=== PATIENT | male | born 1965 | race African-American/Black ===

== ENCOUNTER 2023-02-13 10:40 | Inpatient (IN) | payer OTHER ==
[2023-02-13 11:11] VITALS: BMI 24.5
[2023-02-13] MEDS ORDERED: BENZONATATE 200 MG CAPSULE PO PRN (11:57)
[2023-02-13] MEDS ORDERED: NALOXONE HCL 0.4 MG/ML VIAL IM PRN (11:57)
[2023-02-13] MEDS ORDERED: LOPERAMIDE HCL 2 MG CAPSULE PO PRN (11:57)
[2023-02-13] MEDS ORDERED: MAGNESIUM HYDROX 2400MG/30ML ORAL SUSPENSION 30 ML CUP PO PRN (11:57)
[2023-02-13] MEDS ORDERED: hydrOXYzine PAMOATE 25 MG CAPSULE (FP) PO PRN (11:57)
[2023-02-13] MEDS ORDERED: guaiFENesin 600 MG TABLET.ER (FP) PO PRN (11:57)
[2023-02-13] MEDS ORDERED: POLYETHYLENE GLYCOL (HEALTHYLAX) 3350 17 GM PACKET PO PRN (11:57)
[2023-02-13] MEDS ORDERED: NALOXONE HCL (KLOXXADO) 8 MG SPRAY NS PRN (11:57)
[2023-02-13] MEDS ORDERED: AMMONIUM LACTATE 12% LOTION 225 GM BOTTLE TP PRN (11:57)
[2023-02-13] MEDS ORDERED: ACETAMINOPHEN 325 MG TABLET (FP) PO PRN (11:57)
[2023-02-13] MEDS ORDERED: IBUPROFEN 400 MG TABLET (FP) PO PRN (11:57)
[2023-02-13] MEDS ORDERED: BENZOCAINE/MENTHOL (CHLORASEPTIC ) LOZENGE MM PRN (11:57)
[2023-02-13] MEDS ORDERED: PRENATAL VITAMINS W/ FOLIC ACID TABLET (FP) PO ONE (13:59)
[2023-02-13] MEDS ORDERED: LISINOPRIL 10 MG TABLET ONE (13:59)
[2023-02-13] MEDS: PRENATAL VITAMINS W/ FOLIC ACID TABLET (FP) PO SCH (14:04)
[2023-02-13] MEDS: LISINOPRIL 10 MG TABLET PO SCH (14:05)
[2023-02-13] MEDS: PANTOPRAZOLE 20 MG TABLET PO SCH (14:05)
[2023-02-13 16:14] LABS: HEMATOCRIT 38.9 % (35.4-49); HEMOGLOBIN 12.8 GM/dL (11.7-16.9); MCHC 32.8 g/dl (32.0-35.9); MEAN CELL VOLUME 97.4 fl (80-96); MEAN PLT VOLUME 9.4 fl (7.5-11.1); PLATELET COUNT 267 10^3/uL (134-434); RDW 15.8 % (11.9-15.9); WHITE BLOOD COUNT 6.1 K/mm3 (4.0-10.0)
[2023-02-13 16:16] LABS: POTASSIUM 4.1 mmol/L (3.5-5.1)
[2023-02-13 16:18] LABS: ALBUMIN 3.6 g/dl (3.4-5.0); BLOOD UREA NITROGEN 14.3 mg/dL (7-18); CALCIUM 9.1 mg/dL (8.5-10.1)
[2023-02-13 16:21] LABS: CREATININE 1.2 mg/dL (0.55-1.3)
[2023-02-13 16:23] LABS: BILIRUBIN,TOTAL 0.8 mg/dL (0.2-1); TOT PROT 6.8 g/dl (6.4-8.2)
[2023-02-13] MEDS ORDERED: INSULIN (NOVOLOG) ASPART 100 UNITS/ML 10ML VIAL ONE (18:18)
[2023-02-13] MEDS: INSULIN SLIDING SCALE (NOVOLOG) 1 VIAL SQ SCH (18:20)
[2023-02-13] MEDS: THIAMINE HCL 100 MG TABLET (FP) PO SCH (21:33)
[2023-02-13] MEDS: MELATONIN 5 MG TABLETS PO SCH (21:33)
[2023-02-13] MEDS: ATORVASTATIN CA 20 MG TABLET (FP) PO SCH (21:34)
[2023-02-14] MEDS: metFORMIN HCL 500 MG TABLET (FP) PO SCH (06:58)
[2023-02-14] MEDS: INSULIN SLIDING SCALE (NOVOLOG) 1 VIAL SQ SCH ×2 (06:59→16:50)
[2023-02-14] MEDS: PRENATAL VITAMINS W/ FOLIC ACID TABLET (FP) PO SCH (10:00)
[2023-02-14] MEDS: PANTOPRAZOLE 20 MG TABLET PO SCH (10:00)
[2023-02-14] MEDS: LISINOPRIL 10 MG TABLET PO SCH (10:00)
[2023-02-14] MEDS ORDERED: LISINOPRIL 10 MG TABLET PO SCH (10:00)
[2023-02-14] MEDS ORDERED: INSULIN (LEVEMIR) 100 UNITS/ML UNITS SQ SCH (10:00)
[2023-02-14 11:25] LABS: PH,URINE 5.5 (5.0-8.0); URINE APPEARANCE CLEAR; URINE BILIRUBIN NEGATIVE (NEGATIVE); URINE COLOR YELLOW; URINE GLUCOSE (UA) NEGATIVE (NEGATIVE); URINE KETONE TRACE (NEGATIVE); URINE LEUK ESTERASE NEGATIVE (NEGATIVE); URINE NITRITE NEGATIVE (NEGATIVE); URINE PROTEIN NEGATIVE (NEGATIVE); URINE UROBILINOGEN 0.2 mg/dL (0.2-1.0)
[2023-02-14] MEDS: ATORVASTATIN CA 20 MG TABLET (FP) PO SCH (22:31)
[2023-02-14] MEDS: MELATONIN 5 MG TABLETS PO SCH (22:31)
[2023-02-14] MEDS: THIAMINE HCL 100 MG TABLET (FP) PO SCH (22:32)
[2023-02-15] MEDS: metFORMIN HCL 500 MG TABLET (FP) PO SCH (06:42)
[2023-02-15] MEDS: INSULIN SLIDING SCALE (NOVOLOG) 1 VIAL SQ SCH ×2 (06:43→16:45)
[2023-02-15] MEDS: INSULIN (LEVEMIR) 100 UNITS/ML UNITS SQ SCH (07:13)
[2023-02-15] MEDS: PANTOPRAZOLE 20 MG TABLET PO SCH (07:14)
[2023-02-15] MEDS: LISINOPRIL 10 MG TABLET PO SCH (09:40)
[2023-02-15] MEDS: PRENATAL VITAMINS W/ FOLIC ACID TABLET (FP) PO SCH (09:40)
[2023-02-15] MEDS ORDERED: INSULIN (NOVOLOG) ASPART 100 UNITS/ML 10ML VIAL ONE (16:44)
[2023-02-15] MEDS: ATORVASTATIN CA 20 MG TABLET (FP) PO SCH (21:55)
[2023-02-15] MEDS: THIAMINE HCL 100 MG TABLET (FP) PO SCH (21:55)
[2023-02-15] MEDS: MELATONIN 5 MG TABLETS PO SCH (21:55)
[2023-02-16] MEDS: metFORMIN HCL 500 MG TABLET (FP) PO SCH (06:33)
[2023-02-16] MEDS: INSULIN (LEVEMIR) 100 UNITS/ML UNITS SQ SCH (06:33)
[2023-02-16] MEDS: INSULIN SLIDING SCALE (NOVOLOG) 1 VIAL SQ SCH ×2 (06:42→17:01)
[2023-02-16] MEDS: PANTOPRAZOLE 20 MG TABLET PO SCH (06:43)
[2023-02-16] MEDS: PRENATAL VITAMINS W/ FOLIC ACID TABLET (FP) PO SCH (09:21)
[2023-02-16] MEDS: LISINOPRIL 10 MG TABLET PO SCH (09:22)
[2023-02-16] MEDS ORDERED: INSULIN (NOVOLOG) ASPART 100 UNITS/ML 10ML VIAL ONE ×2 (16:56→19:23)
[2023-02-16 17:40] LABS: PH,URINE 7.5 (5.0-8.0); URINE APPEARANCE CLEAR; URINE BILIRUBIN NEGATIVE (NEGATIVE); URINE COLOR YELLOW; URINE GLUCOSE (UA) NEGATIVE (NEGATIVE); URINE KETONE NEGATIVE (NEGATIVE); URINE LEUK ESTERASE NEGATIVE (NEGATIVE); URINE NITRITE NEGATIVE (NEGATIVE); URINE PROTEIN NEGATIVE (NEGATIVE); URINE UROBILINOGEN 0.2 mg/dL (0.2-1.0)
[2023-02-16] MEDS: THIAMINE HCL 100 MG TABLET (FP) PO SCH (21:26)
[2023-02-16] MEDS: MELATONIN 5 MG TABLETS PO SCH (21:26)
[2023-02-16] MEDS: ATORVASTATIN CA 20 MG TABLET (FP) PO SCH (21:26)
[2023-02-17] MEDS: metFORMIN HCL 500 MG TABLET (FP) PO SCH (06:13)
[2023-02-17] MEDS: INSULIN (LEVEMIR) 100 UNITS/ML UNITS SQ SCH (06:14)
[2023-02-17] MEDS: PANTOPRAZOLE 20 MG TABLET PO SCH (06:14)
[2023-02-17] MEDS: INSULIN SLIDING SCALE (NOVOLOG) 1 VIAL SQ SCH ×2 (06:15→16:54)
[2023-02-17] MEDS: LISINOPRIL 5 MG TABLET PO SCH (09:51)
[2023-02-17] MEDS: PRENATAL VITAMINS W/ FOLIC ACID TABLET (FP) PO SCH (09:51)
[2023-02-17 12:13] LABS: POTASSIUM 4.5 mmol/L (3.5-5.1)
[2023-02-17 12:20] LABS: ALBUMIN 3.7 g/dl (3.4-5.0); BLOOD UREA NITROGEN 9.4 mg/dL (7-18)
[2023-02-17 12:23] LABS: CREATININE 0.9 mg/dL (0.55-1.3)
[2023-02-17 12:24] LABS: BILIRUBIN,TOTAL 0.4 mg/dL (0.2-1); TOT PROT 6.9 g/dl (6.4-8.2)
[2023-02-17] MEDS: THIAMINE HCL 100 MG TABLET (FP) PO SCH (21:30)
[2023-02-17] MEDS: MELATONIN 5 MG TABLETS PO SCH (21:31)
[2023-02-17] MEDS: ATORVASTATIN CA 20 MG TABLET (FP) PO SCH (21:31)
[2023-02-17] MEDS: MAG HYDROX/AL HYDROX/SIMETH 30 ML UNIT-DOSE CUP PO PRN (21:31)
[2023-02-18] MEDS: PANTOPRAZOLE 20 MG TABLET PO SCH (06:36)
[2023-02-18] MEDS: metFORMIN HCL 500 MG TABLET (FP) PO SCH (06:36)
[2023-02-18] MEDS: INSULIN (LEVEMIR) 100 UNITS/ML UNITS SQ SCH (06:37)
[2023-02-18] MEDS: INSULIN SLIDING SCALE (NOVOLOG) 1 VIAL SQ SCH ×2 (06:39→16:56)
[2023-02-18] MEDS: LISINOPRIL 5 MG TABLET PO SCH (10:28)
[2023-02-18] MEDS: PRENATAL VITAMINS W/ FOLIC ACID TABLET (FP) PO SCH (10:28)
[2023-02-18] MEDS ORDERED: INSULIN (NOVOLOG) ASPART 100 UNITS/ML 10ML VIAL ONE (17:24)
[2023-02-18] MEDS: ATORVASTATIN CA 20 MG TABLET (FP) PO SCH (21:29)
[2023-02-18] MEDS: THIAMINE HCL 100 MG TABLET (FP) PO SCH (21:29)
[2023-02-18] MEDS: MAG HYDROX/AL HYDROX/SIMETH 30 ML UNIT-DOSE CUP PO PRN (21:29)
[2023-02-18] MEDS: MELATONIN 5 MG TABLETS PO SCH (21:29)
[2023-02-19] MEDS: INSULIN SLIDING SCALE (NOVOLOG) 1 VIAL SQ SCH ×2 (06:27→17:43)
[2023-02-19] MEDS: PANTOPRAZOLE 20 MG TABLET PO SCH (06:27)
[2023-02-19] MEDS: metFORMIN HCL 500 MG TABLET (FP) PO SCH (06:27)
[2023-02-19] MEDS ORDERED: INSULIN (NOVOLOG) ASPART 100 UNITS/ML 10ML VIAL ONE ×2 (06:28→17:21)
[2023-02-19] MEDS: INSULIN (LEVEMIR) 100 UNITS/ML UNITS SQ SCH (06:30)
[2023-02-19] MEDS: COLLOIDAL OATMEAL 1 BAR EACH TP PRN (06:38)
[2023-02-19] MEDS: PRENATAL VITAMINS W/ FOLIC ACID TABLET (FP) PO SCH (09:32)
[2023-02-19] MEDS: LISINOPRIL 5 MG TABLET PO SCH (09:32)
[2023-02-19] MEDS: THIAMINE HCL 100 MG TABLET (FP) PO SCH (21:36)
[2023-02-19] MEDS: ATORVASTATIN CA 20 MG TABLET (FP) PO SCH (21:36)
[2023-02-19] MEDS: MELATONIN 5 MG TABLETS PO SCH (21:36)
[2023-02-19] MEDS: MAG HYDROX/AL HYDROX/SIMETH 30 ML UNIT-DOSE CUP PO PRN (21:36)
[2023-02-20] MEDS ORDERED: INSULIN (LEVEMIR) 100 UNITS/ML UNITS SQ ONE (06:18)
[2023-02-20] MEDS: metFORMIN HCL 500 MG TABLET (FP) PO SCH (06:42)
[2023-02-20] MEDS: PANTOPRAZOLE 20 MG TABLET PO SCH (06:42)
[2023-02-20] MEDS: INSULIN (LEVEMIR) 100 UNITS/ML UNITS SQ SCH (06:43)
[2023-02-20] MEDS ORDERED: INSULIN (NOVOLOG) ASPART 100 UNITS/ML 10ML VIAL ONE ×2 (06:46→16:49)
[2023-02-20] MEDS: INSULIN SLIDING SCALE (NOVOLOG) 1 VIAL SQ SCH ×2 (07:46→16:52)
[2023-02-20] MEDS: PRENATAL VITAMINS W/ FOLIC ACID TABLET (FP) PO SCH (09:39)
[2023-02-20] MEDS: LISINOPRIL 5 MG TABLET PO SCH (09:39)
[2023-02-20] MEDS: ATORVASTATIN CA 20 MG TABLET (FP) PO SCH (21:15)
[2023-02-20] MEDS: MELATONIN 5 MG TABLETS PO SCH (21:15)
[2023-02-20] MEDS: THIAMINE HCL 100 MG TABLET (FP) PO SCH (21:15)
[2023-02-20] MEDS: MAG HYDROX/AL HYDROX/SIMETH 30 ML UNIT-DOSE CUP PO PRN (21:16)
[2023-02-21] MEDS: INSULIN SLIDING SCALE (NOVOLOG) 1 VIAL SQ SCH ×2 (06:29→16:55)
[2023-02-21] MEDS: PANTOPRAZOLE 20 MG TABLET PO SCH (06:30)
[2023-02-21] MEDS ORDERED: INSULIN (NOVOLOG) ASPART 100 UNITS/ML 10ML VIAL ONE (06:30)
[2023-02-21] MEDS: metFORMIN HCL 500 MG TABLET (FP) PO SCH (06:30)
[2023-02-21] MEDS: INSULIN (LEVEMIR) 100 UNITS/ML UNITS SQ SCH (06:34)
[2023-02-21] MEDS: LISINOPRIL 5 MG TABLET PO SCH (09:42)
[2023-02-21] MEDS: PRENATAL VITAMINS W/ FOLIC ACID TABLET (FP) PO SCH (09:42)
[2023-02-21] MEDS: ATORVASTATIN CA 20 MG TABLET (FP) PO SCH (21:33)
[2023-02-21] MEDS: THIAMINE HCL 100 MG TABLET (FP) PO SCH (21:33)
[2023-02-21] MEDS: MELATONIN 5 MG TABLETS PO SCH (21:34)
[2023-02-22] MEDS: PANTOPRAZOLE 20 MG TABLET PO SCH (06:28)
[2023-02-22] MEDS: metFORMIN HCL 500 MG TABLET (FP) PO SCH (06:28)
[2023-02-22] MEDS: INSULIN SLIDING SCALE (NOVOLOG) 1 VIAL SQ SCH ×2 (06:29→16:35)
[2023-02-22] MEDS ORDERED: INSULIN (NOVOLOG) ASPART 100 UNITS/ML 10ML VIAL ONE (06:29)
[2023-02-22] MEDS: INSULIN (LEVEMIR) 100 UNITS/ML UNITS SQ SCH (06:30)
[2023-02-22] MEDS: LISINOPRIL 5 MG TABLET PO SCH (09:43)
[2023-02-22] MEDS: PRENATAL VITAMINS W/ FOLIC ACID TABLET (FP) PO SCH (09:43)
[2023-02-22] MEDS: THIAMINE HCL 100 MG TABLET (FP) PO SCH (21:21)
[2023-02-22] MEDS: ATORVASTATIN CA 20 MG TABLET (FP) PO SCH (21:21)
[2023-02-22] MEDS: MELATONIN 5 MG TABLETS PO SCH (21:21)
[2023-02-23] MEDS: PANTOPRAZOLE 20 MG TABLET PO SCH (06:39)
[2023-02-23] MEDS: metFORMIN HCL 500 MG TABLET (FP) PO SCH (06:40)
[2023-02-23] MEDS: INSULIN SLIDING SCALE (NOVOLOG) 1 VIAL SQ SCH ×2 (06:41→16:33)
[2023-02-23] MEDS ORDERED: INSULIN (NOVOLOG) ASPART 100 UNITS/ML 10ML VIAL ONE (06:42)
[2023-02-23] MEDS: INSULIN (LEVEMIR) 100 UNITS/ML UNITS SQ SCH (06:43)
[2023-02-23] MEDS: PRENATAL VITAMINS W/ FOLIC ACID TABLET (FP) PO SCH (10:04)
[2023-02-23] MEDS: LISINOPRIL 5 MG TABLET PO SCH (10:04)
[2023-02-23] MEDS: THIAMINE HCL 100 MG TABLET (FP) PO SCH (21:02)
[2023-02-23] MEDS: MELATONIN 5 MG TABLETS PO SCH (21:02)
[2023-02-23] MEDS: ATORVASTATIN CA 20 MG TABLET (FP) PO SCH (21:02)
[2023-02-23] MEDS: MAG HYDROX/AL HYDROX/SIMETH 30 ML UNIT-DOSE CUP PO PRN (21:03)
[2023-02-24] MEDS: metFORMIN HCL 500 MG TABLET (FP) PO SCH (06:29)
[2023-02-24] MEDS: PANTOPRAZOLE 20 MG TABLET PO SCH (06:29)
[2023-02-24] MEDS: INSULIN (LEVEMIR) 100 UNITS/ML UNITS SQ SCH (06:30)
[2023-02-24] MEDS: INSULIN SLIDING SCALE (NOVOLOG) 1 VIAL SQ SCH ×2 (06:32→16:48)
[2023-02-24] MEDS ORDERED: INSULIN (NOVOLOG) ASPART 100 UNITS/ML 10ML VIAL ONE (06:32)
[2023-02-24] MEDS: PRENATAL VITAMINS W/ FOLIC ACID TABLET (FP) PO SCH (09:48)
[2023-02-24] MEDS: LISINOPRIL 5 MG TABLET PO SCH (09:49)
[2023-02-24] MEDS: IBUPROFEN 600 MG TABLET (FP) PO PRN (10:57)
[2023-02-24] MEDS: ATORVASTATIN CA 20 MG TABLET (FP) PO SCH (21:38)
[2023-02-24] MEDS: THIAMINE HCL 100 MG TABLET (FP) PO SCH (21:38)
[2023-02-24] MEDS: MELATONIN 5 MG TABLETS PO SCH (21:38)
[2023-02-24] MEDS: MAG HYDROX/AL HYDROX/SIMETH 30 ML UNIT-DOSE CUP PO PRN (21:39)
[2023-02-25] MEDS: metFORMIN HCL 500 MG TABLET (FP) PO SCH (06:41)
[2023-02-25] MEDS: PANTOPRAZOLE 20 MG TABLET PO SCH (06:41)
[2023-02-25] MEDS: INSULIN SLIDING SCALE (NOVOLOG) 1 VIAL SQ SCH ×2 (06:42→16:38)
[2023-02-25] MEDS: INSULIN (LEVEMIR) 100 UNITS/ML UNITS SQ SCH (06:43)
[2023-02-25] MEDS ORDERED: INSULIN (NOVOLOG) ASPART 100 UNITS/ML 10ML VIAL ONE (07:03)
[2023-02-25] MEDS ORDERED: TUBERCULIN PPD 5 TU/0.1ML VIAL ID ONE (07:04)
[2023-02-25] MEDS: LISINOPRIL 5 MG TABLET PO SCH (10:04)
[2023-02-25] MEDS: PRENATAL VITAMINS W/ FOLIC ACID TABLET (FP) PO SCH (10:04)
[2023-02-25] MEDS: MELATONIN 5 MG TABLETS PO SCH (21:21)
[2023-02-25] MEDS: THIAMINE HCL 100 MG TABLET (FP) PO SCH (21:21)
[2023-02-25] MEDS: MAG HYDROX/AL HYDROX/SIMETH 30 ML UNIT-DOSE CUP PO PRN (21:22)
[2023-02-25] MEDS: ATORVASTATIN CA 20 MG TABLET (FP) PO SCH (21:22)
[2023-02-26] MEDS: PANTOPRAZOLE 20 MG TABLET PO SCH (06:19)
[2023-02-26] MEDS: metFORMIN HCL 500 MG TABLET (FP) PO SCH (06:19)
[2023-02-26] MEDS: INSULIN (LEVEMIR) 100 UNITS/ML UNITS SQ SCH (06:20)
[2023-02-26] MEDS: INSULIN SLIDING SCALE (NOVOLOG) 1 VIAL SQ SCH ×2 (06:20→16:38)
[2023-02-26] MEDS: PRENATAL VITAMINS W/ FOLIC ACID TABLET (FP) PO SCH (09:33)
[2023-02-26] MEDS: LISINOPRIL 5 MG TABLET PO SCH (09:33)
[2023-02-26] MEDS: THIAMINE HCL 100 MG TABLET (FP) PO SCH (21:32)
[2023-02-26] MEDS: MELATONIN 5 MG TABLETS PO SCH (21:32)
[2023-02-26] MEDS: ATORVASTATIN CA 20 MG TABLET (FP) PO SCH (21:32)
[2023-02-27] MEDS: metFORMIN HCL 500 MG TABLET (FP) PO SCH (06:38)
[2023-02-27] MEDS: PANTOPRAZOLE 20 MG TABLET PO SCH (06:38)
[2023-02-27] MEDS: INSULIN (LEVEMIR) 100 UNITS/ML UNITS SQ SCH (06:38)
[2023-02-27] MEDS: INSULIN SLIDING SCALE (NOVOLOG) 1 VIAL SQ SCH ×2 (07:44→16:38)
[2023-02-27] MEDS: PRENATAL VITAMINS W/ FOLIC ACID TABLET (FP) PO SCH (09:44)
[2023-02-27] MEDS: LISINOPRIL 5 MG TABLET PO SCH (09:45)
[2023-02-27] MEDS: ACETAMINOPHEN 325 MG TABLET (FP) PO PRN (15:45)
[2023-02-27] MEDS: MELATONIN 5 MG TABLETS PO SCH (21:37)
[2023-02-27] MEDS: THIAMINE HCL 100 MG TABLET (FP) PO SCH (21:37)
[2023-02-27] MEDS: ATORVASTATIN CA 20 MG TABLET (FP) PO SCH (21:37)
[2023-02-27] MEDS: MAG HYDROX/AL HYDROX/SIMETH 30 ML UNIT-DOSE CUP PO PRN (21:39)
[2023-02-28] MEDS: metFORMIN HCL 500 MG TABLET (FP) PO SCH (06:27)
[2023-02-28] MEDS: PANTOPRAZOLE 20 MG TABLET PO SCH (06:27)
[2023-02-28] MEDS: INSULIN SLIDING SCALE (NOVOLOG) 1 VIAL SQ SCH ×2 (06:27→17:13)
[2023-02-28] MEDS: INSULIN (LEVEMIR) 100 UNITS/ML UNITS SQ SCH (06:28)
[2023-02-28] MEDS ORDERED: INSULIN (NOVOLOG) ASPART 100 UNITS/ML 10ML VIAL ONE (06:39)
[2023-02-28] MEDS: ACETAMINOPHEN 325 MG TABLET (FP) PO PRN (08:58)
[2023-02-28] MEDS: PRENATAL VITAMINS W/ FOLIC ACID TABLET (FP) PO SCH (09:00)
[2023-02-28] MEDS: LISINOPRIL 5 MG TABLET PO SCH (09:00)
[2023-02-28] MEDS: ATORVASTATIN CA 20 MG TABLET (FP) PO SCH (22:10)
[2023-02-28] MEDS: MELATONIN 5 MG TABLETS PO SCH (22:10)
[2023-02-28] MEDS: THIAMINE HCL 100 MG TABLET (FP) PO SCH (22:10)
[2023-03-01] MEDS: INSULIN SLIDING SCALE (NOVOLOG) 1 VIAL SQ SCH ×2 (06:46→16:43)
[2023-03-01] MEDS: metFORMIN HCL 500 MG TABLET (FP) PO SCH (06:47)
[2023-03-01] MEDS: INSULIN (LEVEMIR) 100 UNITS/ML UNITS SQ SCH (06:47)
[2023-03-01] MEDS: PANTOPRAZOLE 20 MG TABLET PO SCH (06:48)
[2023-03-01] MEDS: COLLOIDAL OATMEAL 1 BAR EACH TP PRN (06:50)
[2023-03-01] MEDS ORDERED: INSULIN (NOVOLOG) ASPART 100 UNITS/ML 10ML VIAL ONE (06:57)
[2023-03-01] MEDS: LISINOPRIL 5 MG TABLET PO SCH (09:24)
[2023-03-01] MEDS: PRENATAL VITAMINS W/ FOLIC ACID TABLET (FP) PO SCH (09:24)
[2023-03-01] MEDS: ACETAMINOPHEN 325 MG TABLET (FP) PO PRN (09:25)
[2023-03-01] MEDS: THIAMINE HCL 100 MG TABLET (FP) PO SCH (21:29)
[2023-03-01] MEDS: ATORVASTATIN CA 20 MG TABLET (FP) PO SCH (21:29)
[2023-03-01] MEDS: MELATONIN 5 MG TABLETS PO SCH (21:29)
[2023-03-01] MEDS: MAG HYDROX/AL HYDROX/SIMETH 30 ML UNIT-DOSE CUP PO PRN (23:31)
[2023-03-02] MEDS: PANTOPRAZOLE 20 MG TABLET PO SCH (06:38)
[2023-03-02] MEDS: INSULIN SLIDING SCALE (NOVOLOG) 1 VIAL SQ SCH ×2 (06:38→16:52)
[2023-03-02] MEDS: INSULIN (LEVEMIR) 100 UNITS/ML UNITS SQ SCH (06:39)
[2023-03-02] MEDS: metFORMIN HCL 500 MG TABLET (FP) PO SCH (06:39)
[2023-03-02] MEDS ORDERED: INSULIN (NOVOLOG) ASPART 100 UNITS/ML 10ML VIAL ONE ×2 (06:56→16:52)
[2023-03-02] MEDS: LISINOPRIL 5 MG TABLET PO SCH (09:59)
[2023-03-02] MEDS: PRENATAL VITAMINS W/ FOLIC ACID TABLET (FP) PO SCH (10:00)
[2023-03-02] MEDS: IBUPROFEN 600 MG TABLET (FP) PO PRN (18:46)
[2023-03-02] MEDS: THIAMINE HCL 100 MG TABLET (FP) PO SCH (21:00)
[2023-03-02] MEDS: ATORVASTATIN CA 20 MG TABLET (FP) PO SCH (21:00)
[2023-03-02] MEDS: MELATONIN 5 MG TABLETS PO SCH (21:00)
[2023-03-02] MEDS: MAG HYDROX/AL HYDROX/SIMETH 30 ML UNIT-DOSE CUP PO PRN (21:01)
[2023-03-03] MEDS: INSULIN SLIDING SCALE (NOVOLOG) 1 VIAL SQ SCH ×2 (06:34→16:37)
[2023-03-03] MEDS: metFORMIN HCL 500 MG TABLET (FP) PO SCH (06:35)
[2023-03-03] MEDS: PANTOPRAZOLE 20 MG TABLET PO SCH (06:35)
[2023-03-03] MEDS: INSULIN (LEVEMIR) 100 UNITS/ML UNITS SQ SCH (06:36)
[2023-03-03] MEDS ORDERED: INSULIN (NOVOLOG) ASPART 100 UNITS/ML 10ML VIAL ONE (07:06)
[2023-03-03] MEDS: PRENATAL VITAMINS W/ FOLIC ACID TABLET (FP) PO SCH (09:55)
[2023-03-03] MEDS: LISINOPRIL 5 MG TABLET PO SCH (09:55)
[2023-03-03] MEDS: THIAMINE HCL 100 MG TABLET (FP) PO SCH (21:16)
[2023-03-03] MEDS: MELATONIN 5 MG TABLETS PO SCH (21:16)
[2023-03-03] MEDS: ATORVASTATIN CA 20 MG TABLET (FP) PO SCH (21:17)
[2023-03-03] MEDS: MAG HYDROX/AL HYDROX/SIMETH 30 ML UNIT-DOSE CUP PO PRN (21:17)
[2023-03-04] MEDS: INSULIN (LEVEMIR) 100 UNITS/ML UNITS SQ SCH (06:32)
[2023-03-04] MEDS: INSULIN SLIDING SCALE (NOVOLOG) 1 VIAL SQ SCH ×2 (06:33→16:34)
[2023-03-04] MEDS: metFORMIN HCL 500 MG TABLET (FP) PO SCH (06:35)
[2023-03-04] MEDS: PANTOPRAZOLE 20 MG TABLET PO SCH (06:35)
[2023-03-04] MEDS: LISINOPRIL 5 MG TABLET PO SCH (10:01)
[2023-03-04] MEDS: PRENATAL VITAMINS W/ FOLIC ACID TABLET (FP) PO SCH (10:01)
[2023-03-04] MEDS: IBUPROFEN 600 MG TABLET (FP) PO PRN ×2 (10:30→14:30)
[2023-03-04] MEDS: ACETAMINOPHEN 325 MG TABLET (FP) PO PRN ×2 (13:43→21:31)
[2023-03-04] MEDS: MELATONIN 5 MG TABLETS PO SCH (21:14)
[2023-03-04] MEDS: THIAMINE HCL 100 MG TABLET (FP) PO SCH (21:14)
[2023-03-04] MEDS: MAG HYDROX/AL HYDROX/SIMETH 30 ML UNIT-DOSE CUP PO PRN (21:15)
[2023-03-04] MEDS: ATORVASTATIN CA 20 MG TABLET (FP) PO SCH (21:16)
[2023-03-05] MEDS: metFORMIN HCL 500 MG TABLET (FP) PO SCH (06:33)
[2023-03-05] MEDS: PANTOPRAZOLE 20 MG TABLET PO SCH (06:33)
[2023-03-05] MEDS: INSULIN (LEVEMIR) 100 UNITS/ML UNITS SQ SCH (06:34)
[2023-03-05] MEDS: INSULIN SLIDING SCALE (NOVOLOG) 1 VIAL SQ SCH ×2 (06:35→16:31)
[2023-03-05] MEDS ORDERED: INSULIN (NOVOLOG) ASPART 100 UNITS/ML 10ML VIAL ONE ×2 (08:22→16:31)
[2023-03-05] MEDS: PRENATAL VITAMINS W/ FOLIC ACID TABLET (FP) PO SCH (09:38)
[2023-03-05] MEDS: LISINOPRIL 5 MG TABLET PO SCH (09:39)
[2023-03-05] MEDS: ACETAMINOPHEN 325 MG TABLET (FP) PO PRN (09:40)
[2023-03-05] MEDS: IBUPROFEN 600 MG TABLET (FP) PO PRN ×2 (11:06→21:10)
[2023-03-05] MEDS: ATORVASTATIN CA 20 MG TABLET (FP) PO SCH (21:10)
[2023-03-05] MEDS: MELATONIN 5 MG TABLETS PO SCH (21:10)
[2023-03-05] MEDS: THIAMINE HCL 100 MG TABLET (FP) PO SCH (21:10)
[2023-03-05] MEDS: MAG HYDROX/AL HYDROX/SIMETH 30 ML UNIT-DOSE CUP PO PRN (21:11)
[2023-03-06] MEDS: PANTOPRAZOLE 20 MG TABLET PO SCH (06:23)
[2023-03-06] MEDS: metFORMIN HCL 500 MG TABLET (FP) PO SCH (06:24)
[2023-03-06] MEDS: INSULIN SLIDING SCALE (NOVOLOG) 1 VIAL SQ SCH ×2 (06:24→16:55)
[2023-03-06] MEDS: INSULIN (LEVEMIR) 100 UNITS/ML UNITS SQ SCH (06:42)
[2023-03-06] MEDS ORDERED: INSULIN (NOVOLOG) ASPART 100 UNITS/ML 10ML VIAL ONE (06:44)
[2023-03-06] MEDS: LISINOPRIL 5 MG TABLET PO SCH (09:51)
[2023-03-06] MEDS: ACETAMINOPHEN 325 MG TABLET (FP) PO PRN (09:52)
[2023-03-06] MEDS: PRENATAL VITAMINS W/ FOLIC ACID TABLET (FP) PO SCH (09:52)
[2023-03-06] MEDS: LIDOCAINE 5% TOPICAL PATCH TP SCH (12:21)
[2023-03-06] MEDS: METHYL SALICYLATE/MENTHOL OINT 30 GM TUBE TP SCH ×2 (12:40→21:45)
[2023-03-06] MEDS ORDERED: BACLOFEN 10 MG TABLET (FP) PO ONE (16:34)
[2023-03-06] MEDS: THIAMINE HCL 100 MG TABLET (FP) PO SCH (21:45)
[2023-03-06] MEDS: MAG HYDROX/AL HYDROX/SIMETH 30 ML UNIT-DOSE CUP PO PRN (21:45)
[2023-03-06] MEDS: ATORVASTATIN CA 20 MG TABLET (FP) PO SCH (21:45)
[2023-03-06] MEDS: MELATONIN 5 MG TABLETS PO SCH (21:45)
[2023-03-06] MEDS: LIDOCAINE PATCH REMOVAL MC SCH (21:46)
[2023-03-07] MEDS: INSULIN SLIDING SCALE (NOVOLOG) 1 VIAL SQ SCH ×2 (06:11→16:48)
[2023-03-07] MEDS: metFORMIN HCL 500 MG TABLET (FP) PO SCH (06:11)
[2023-03-07] MEDS: PANTOPRAZOLE 20 MG TABLET PO SCH (06:11)
[2023-03-07] MEDS: INSULIN (LEVEMIR) 100 UNITS/ML UNITS SQ SCH (06:12)
[2023-03-07] MEDS ORDERED: INSULIN (NOVOLOG) ASPART 100 UNITS/ML 10ML VIAL ONE (06:59)
[2023-03-07] MEDS: BACLOFEN 10 MG TABLET (FP) PO PRN (09:04)
[2023-03-07] MEDS: LISINOPRIL 5 MG TABLET PO SCH (09:39)
[2023-03-07] MEDS: PRENATAL VITAMINS W/ FOLIC ACID TABLET (FP) PO SCH (09:39)
[2023-03-07] MEDS: LIDOCAINE 5% TOPICAL PATCH TP SCH (09:40)
[2023-03-07] MEDS: METHYL SALICYLATE/MENTHOL OINT 30 GM TUBE TP SCH ×2 (09:40→21:37)
[2023-03-07] MEDS: ACETAMINOPHEN 325 MG TABLET (FP) PO PRN (17:12)
[2023-03-07] MEDS: ATORVASTATIN CA 20 MG TABLET (FP) PO SCH (21:36)
[2023-03-07] MEDS: MELATONIN 5 MG TABLETS PO SCH (21:36)
[2023-03-07] MEDS: THIAMINE HCL 100 MG TABLET (FP) PO SCH (21:36)
[2023-03-07] MEDS: LIDOCAINE PATCH REMOVAL MC SCH (21:37)
[2023-03-07] MEDS: MAG HYDROX/AL HYDROX/SIMETH 30 ML UNIT-DOSE CUP PO PRN (21:38)
[2023-03-08] MEDS: INSULIN SLIDING SCALE (NOVOLOG) 1 VIAL SQ SCH ×2 (06:21→16:49)
[2023-03-08] MEDS ORDERED: INSULIN (NOVOLOG) ASPART 100 UNITS/ML 10ML VIAL ONE (06:21)
[2023-03-08] MEDS: PANTOPRAZOLE 20 MG TABLET PO SCH (06:21)
[2023-03-08] MEDS: metFORMIN HCL 500 MG TABLET (FP) PO SCH (06:21)
[2023-03-08] MEDS: INSULIN (LEVEMIR) 100 UNITS/ML UNITS SQ SCH (06:22)
[2023-03-08] MEDS: LIDOCAINE 5% TOPICAL PATCH TP SCH (09:50)
[2023-03-08] MEDS: LISINOPRIL 5 MG TABLET PO SCH (09:50)
[2023-03-08] MEDS: PRENATAL VITAMINS W/ FOLIC ACID TABLET (FP) PO SCH (09:50)
[2023-03-08] MEDS: METHYL SALICYLATE/MENTHOL OINT 30 GM TUBE TP SCH ×2 (09:51→21:14)
[2023-03-08] MEDS: ACETAMINOPHEN 325 MG TABLET (FP) PO PRN (16:50)
[2023-03-08] MEDS: LIDOCAINE PATCH REMOVAL MC SCH (21:14)
[2023-03-08] MEDS: MELATONIN 5 MG TABLETS PO SCH (21:17)
[2023-03-08] MEDS: ATORVASTATIN CA 20 MG TABLET (FP) PO SCH (21:17)
[2023-03-08] MEDS: THIAMINE HCL 100 MG TABLET (FP) PO SCH (21:17)
[2023-03-08] MEDS: BACLOFEN 10 MG TABLET (FP) PO PRN (21:17)
[2023-03-08] MEDS: MAG HYDROX/AL HYDROX/SIMETH 30 ML UNIT-DOSE CUP PO PRN (21:17)
[2023-03-09 06:24] VITALS: RESP 16
[2023-03-09] MEDS: metFORMIN HCL 500 MG TABLET (FP) PO SCH (06:42)
[2023-03-09] MEDS: BACLOFEN 10 MG TABLET (FP) PO PRN ×2 (06:42→13:05)
[2023-03-09] MEDS: INSULIN (LEVEMIR) 100 UNITS/ML UNITS SQ SCH (06:42)
[2023-03-09] MEDS: INSULIN SLIDING SCALE (NOVOLOG) 1 VIAL SQ SCH ×2 (06:44→17:10)
[2023-03-09] MEDS: PANTOPRAZOLE 20 MG TABLET PO SCH (06:59)
[2023-03-09] MEDS ORDERED: INSULIN (NOVOLOG) ASPART 100 UNITS/ML 10ML VIAL ONE ×2 (08:28→17:18)
[2023-03-09] MEDS: METHYL SALICYLATE/MENTHOL OINT 30 GM TUBE TP SCH ×2 (09:39→21:29)
[2023-03-09] MEDS: LIDOCAINE 5% TOPICAL PATCH TP SCH (09:39)
[2023-03-09] MEDS: PRENATAL VITAMINS W/ FOLIC ACID TABLET (FP) PO SCH (09:39)
[2023-03-09] MEDS: LISINOPRIL 5 MG TABLET PO SCH (09:40)
[2023-03-09] MEDS: COLLOIDAL OATMEAL 1 BAR EACH TP PRN (10:28)
[2023-03-09] MEDS: MELATONIN 5 MG TABLETS PO SCH (21:28)
[2023-03-09] MEDS: ATORVASTATIN CA 20 MG TABLET (FP) PO SCH (21:28)
[2023-03-09] MEDS: LIDOCAINE PATCH REMOVAL MC SCH (21:29)
[2023-03-09] MEDS: ACETAMINOPHEN 325 MG TABLET (FP) PO PRN (21:29)
[2023-03-09] MEDS: MAG HYDROX/AL HYDROX/SIMETH 30 ML UNIT-DOSE CUP PO PRN (21:29)
[2023-03-09] MEDS: THIAMINE HCL 100 MG TABLET (FP) PO SCH (21:30)
[2023-03-10] MEDS: INSULIN (LEVEMIR) 100 UNITS/ML UNITS SQ SCH (06:15)
[2023-03-10] MEDS: INSULIN SLIDING SCALE (NOVOLOG) 1 VIAL SQ SCH (06:17)
[2023-03-10] MEDS: metFORMIN HCL 500 MG TABLET (FP) PO SCH (06:18)
[2023-03-10] MEDS: PANTOPRAZOLE 20 MG TABLET PO SCH (06:18)
[2023-03-10 06:29] VITALS: TEMP 78
[2023-03-10] MEDS ORDERED: INSULIN (NOVOLOG) ASPART 100 UNITS/ML 10ML VIAL ONE (07:10)
[2023-03-10] MEDS: PRENATAL VITAMINS W/ FOLIC ACID TABLET (FP) PO SCH (09:09)
[2023-03-10] MEDS: LISINOPRIL 5 MG TABLET PO SCH (09:09)
[2023-03-10] MEDS: LIDOCAINE 5% TOPICAL PATCH TP SCH (09:11)
[2023-03-10] MEDS: METHYL SALICYLATE/MENTHOL OINT 30 GM TUBE TP SCH (09:11)
[2023-03-10 09:15] VITALS: BP 162/95; PULSE 80
== END 2023-03-10 09:22 | disposition home or self-care (01) | DRG 772 ==
LOC: YASAS 10:40 → Y3E 13:43
PROVIDERS: ADMIT Allergy & Immunology; ATTEND Psychiatry & Neurology Pain Medicine
PROC: HZ42ZZZ Group Counseling for Substance Abuse Treatment, Cognitive-Behavioral (ICD-10-PCS; principal; 2023-02-13)
DX: F10.20 Alcohol dependence, uncomplicated (principal); F14.20 Cocaine dependence, uncomplicated; F17.210 Nicotine dependence, cigarettes, uncomplicated; F32.A Depression, unspecified; F43.10 Post-traumatic stress disorder, unspecified; F41.9 Anxiety disorder, unspecified; I10 Essential (primary) hypertension; E78.5 Hyperlipidemia, unspecified; E11.9 Type 2 diabetes mellitus without complications; Z79.4 Long term (current) use of insulin; M25.511 Pain in right shoulder; R35.0 Frequency of micturition; Z20.822 Contact with and (suspected) exposure to COVID-19
CPT/HCPCS: 36415; 71046-TC-FY; 80053; 81003; 82962; 85027; 86780; 86803; 87086; 87635; 87811; J0475